=== PATIENT | male | born 1980 | race Caucasian/White ===

== ENCOUNTER 2021-09-04 14:11 | Emergency (ER) | payer SELFPAY ==
[~2021-09-04] VITALS: Ht 167.6 cm; Wt 77.0 kg
[2021-09-04 16:00] VITALS: BP 113/81
== END 2021-09-04 16:33 | disposition home or self-care (01) ==
LOC: ER 14:49
DX: T40.2X1A Poisoning by other opioids, accidental (unintentional), initial encounter (principal); F10.129 Alcohol abuse with intoxication, unspecified; Y90.9 Presence of alcohol in blood, level not specified; Y92.89 Other specified places as the place of occurrence of the external cause
CPT/HCPCS: 99283